=== PATIENT | male | born 1945 | race Caucasian/White ===

== ENCOUNTER 2019-02-26 16:19 | Inpatient (IN) | payer OTHER ==
[~2019-02-26] VITALS: Ht 177.8 cm; Wt 56.7 kg
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
[2019-02-26 16:21] VITALS: BP 105/61
[2019-02-26] MEDS ORDERED: DULCOLAX STOOL100 M1 PO (16:47)
[2019-02-26] MEDS ORDERED: MILK OF MA400 MG/5 M PO (16:47)
[2019-02-26] MEDS ORDERED: PHARBETOL325 MG PO (16:48)
[2019-02-26 16:59] LABS: URINE BILIRUBIN NEGATIVE (Negative); URINE BLOOD NEGATIVE (Negative); URINE CLARITY CLEAR; URINE COLOR YELLOW; URINE GLUCOSE-RANDOM* NEGATIVE (Negative); URINE KETONES NEGATIVE (Negative); URINE LEUKOCYTES-REFLEX NEGATIVE (Negative); URINE NITRITE-REFLEX NEGATIVE (Negative); URINE PROTEIN (DIPSTICK) NEGATIVE (Negative); URINE SPECIFIC GRAVITY 1.025 (1.005-1.035); URINE UROBILINOGEN 0.2 E.U./dl (0.2-1.0)
[2019-02-26 17:01] LABS: HEMATOCRIT 31.1 % (42.0-52.0); HEMOGLOBIN 10.5 gm/dL (14.0-18.0); MCH 33.7 pg (26.0-34.0); MCHC 33.8 g/dL (28.0-37.0); MCV 99.5 fL (80.0-100.0); RBC 3.13 mil/uL (4.50-6.00); RDW 14.9 % (10.5-14.5); WBC 5.3 thou/uL (4.0-11.0)
[2019-02-26 17:03] LABS: CALCIUM 8.2 mg/dL (8.5-10.1); CREATININE 0.7 mg/dL (0.7-1.3); POTASSIUM 3.7 mmol/L (3.5-5.1)
[2019-02-26 17:07] LABS: AMP/METHAMP Negative (Negative); BARBITURATES Negative (Negative); BENZODIAZEPINES Negative (Negative); COCAINE Negative (Negative); METHADONE Negative (Negative); OPIATES Negative (Negative); PCP Negative (Negative)
[2019-02-26 19:40] VITALS: BP 110/61
[2019-02-26 20:00] VITALS: BP 137/59
[2019-02-26 20:05] VITALS: BP 136/64
--- NOTE | 2019-02-26 23:37 | NUR ---
ADMIT NOTE. PT ADMITTED FROM ED. PT ARRIVED FROM [facility], HE WAS THERE FOR SKILLED CARE BUT DUE TO COMBATIVE AGITATION HE WAS SENT TO THE ED. PT HAS A DAUGHTER WHO IS HIS GUARDIAN. PT IS CONFUSED, ORIENTED TO NAME, NOT ABLE TO ANSWER ASSESSMENT QUESTION. HISTORY OBTAINED FROM REPORT AND NH RECORDS. PT WAS NOT ON ANY ROUTINE MEDICATIONS, NKDA, FULL CODE. MED HX HTN, HLD, DEMENTIA, FALLS. PT HAS BLUNTED OR ANGRY AFFECT, GOOD EYE CONTACT, RAPID STEADY GAIT AMBULATORY. INCONTINENT. SPEECH CLEAR WHEN YELLING AND CURSING, MUMBLES TO SELF. PT PICKING AT FLOOR AND AIR, PT CHECKING DOORS, FOLDING SHEETS ON BED, CARRYING SHEETS INTO DAY ROOMO AND FOLDING THEM. PT EMPTIED TRASH
--- NOTE | 2019-02-26 23:50 | NUR ---
SOCIAL WORK ADMINISTRATOR CAME TO VISIT [facility] PT, PT COMBATIVE AND NONVERBAL.
[2019-02-27 09:03] VITALS: BP 126/51
--- NOTE | 2019-02-27 16:30 | NUR ---
SW attempted to complete Psychosocial assessment with Pt. Pt unable to answer questions as his speech was incoherent. SW will follow up with family to complete assessment.
--- NOTE | 2019-02-27 17:17 | NUR ---
WANDERING INTO OTHER ROOMS AND PICKING UP GALAN AT ONE POINT HAD 5 GALAN IN HIS HAND-RESISITVE WITH LETTING STAFF HAVE THESE GALAN. COMBATIVE WITH ATTEMPTS TO CHANGE BRIEF-HITTING,KICKING AND SWEARING AT STAFF,REQUIRES ASSIST OF 2-3 TO COMPLETE PERINEAL CARE. CONVERSATION FRAGMENTED,INCOHERENT. INCONGRUENT AFFECT HE IS SMILING WHILE ATTEMPTING TO PINCH STAFFS ARM. GAIT IS STEADY WITHOUT ASSISITVE DEVICES-ABLE TO FEED SELF IF TRAY SET UP-POOR INTAKE AT LUNCH HE APPEARED UNABLE TO SIT STILL UP AND PACING IN HALLWAY. COMPLIENT WITH TAKING PO MEDS
[2019-02-27 19:25] VITALS: BP 127/94
--- NOTE | 2019-02-27 23:19 | NUR ---
Care assumed of patient at 1915: Patient alert and oriented to person only. Patient confused. Mumbling, disorganized speech observed. Patient hyperactive about the day room. Touching the bell, feeling the couch along the seams, trying to move furniture, trying to turn screws/bolts visible along the bell. Patient easily re-directed at the beginning of the shift. Patient ate 100% snack. Cooperative with nursing assessment. Nurse administered PRN Trazodone 25mg po to assist with sleep. Patient took medication crushed without difficulty. Patient became increasingly hyperactive, impulsive, exit seeking, banging on doors and windows, going in rooms of peers sleeping and refusing to leave, yelling/cursing toward staff. Agitation behaviors continued to increase so nurse administered Zyprexa 5mg IM. Patient was assisted to bed approximately 1 hour after injection administered due to him trying to lay down on the couch. Patient was able to sleep for approximately 1 hour and is now up. Patient was incontinent of bladder. Lilly care provided and linens changed. Patient became combative, hostile, verbally/physically aggressive by hitting while lilly care and brief was changed. Required staff assist x3 due to assaultive behaviors. Patient continues to be restless at this time. Unknown if patient is experiencing visual hallucinations or is just pilfering. Patient visualized crawling on the floor several times and feeling around on the floor with nothing visible to staff.
[2019-02-28 05:27] LABS: HEMATOCRIT 34.6 % (42.0-52.0); HEMOGLOBIN 11.3 gm/dL (14.0-18.0); MCH 32.8 pg (26.0-34.0); MCHC 32.6 g/dL (28.0-37.0); MCV 100.4 fL (80.0-100.0); RBC 3.45 mil/uL (4.50-6.00); RDW 14.5 % (10.5-14.5); WBC 4.5 thou/uL (4.0-11.0)
[2019-02-28 05:55] LABS: ANION GAP 8 mmol/L (7-16); BUN 15 mg/dL (7-18); CALCIUM 8.9 mg/dL (8.5-10.1); CHLORIDE 103 mmol/L (98-107); CHOLESTEROL 232 mg/dL (<200); CO2 28 mmol/L (21-32); CREATININE 0.7 mg/dL (0.7-1.3); GLUCOSE 84 mg/dL (74-106); HDL CHOLESTEROL 77 mg/dL (>40); LDL CHOLESTEROL 141 mg/dL (<100); MAGNESIUM 2.1 mg/dL (1.8-2.4); POTASSIUM 3.7 mmol/L (3.5-5.1); SODIUM 139 mmol/L (136-145); TRIGLYCERIDE 73 mg/dL (<150); VLDL 15 mg/dL (<40)
[2019-02-28 05:57] LABS: SERUM ASSESSMENT Clear
[2019-02-28 06:17] LABS: TSH 2.156 uIU/mL (0.358-3.740)
[2019-02-28 08:09] VITALS: BP 128/65
--- NOTE | 2019-02-28 15:15 | NUR ---
0700: Report rec from noc shift, care assumed. [id number]: Mobile by w/c, slef propels in DR and edouard, intrusive among other pts, bangs into chairs, touches all objects and others, difficult to re-direct, staff attempted to assist with a.m. meal, pt resistive to help.Present for 0900 therapy group but unable to participate.
--- NOTE | 2019-02-28 23:18 | NUR ---
PT SITTING IN W/C LAP BELT, CHAIR ALARM. PROPELLING SELF IN DAY ROOM AND HALLWAY, PICKING AT AIR, OBJECTS, PANTS FURNITURE FLOOR. TALKING TO SELF, SLOUCHED POSITION. TAKING OF SHIRT AND SOCKS. PT RESISTIVE HITTING GRABBING WITH ADL CARES. PT COMPLIANT WITH HS MEDS AND SNACK. PTS DAUGHTER CALLED FOR UPDATE AND INFORMED OF NO SLEEP FOR LAST TWO DAYS. PT IN HALLWAY PUSHING ON DOORS AND PULLING ON DOOR KNOBS, RAMMING W/C INTO TABLE AND CHAIRS AND CABINETS, PRN IM PROVIDED.
--- NOTE | 2019-03-01 05:59 | NUR ---
PT ABLE TO SLEEP TONIGHT, REMAINS PHYSICALLY COMBATIVE WITH ADL CARES, GRABBING, HITTING PINCHING. REMAINS SLOUCHED OVER NOT ABLE TO STAND UPRIGHT. PT IN W/C WITH LAP BELT AND ALARM, PICKING ON GROUND, AIR, FURNITURE. MUMBLING TO SELF.
--- NOTE | 2019-03-01 08:35 | EKG ---
[address] [place] [address] ELECTROCARDIOGRAM REPORT Name: ANI SCOTT [facility] [id number] Admission: 02/26/19 Attend Phys: Joseph Bautista DO Discharge: Date of : 47 Report #: [id number] THIS REPORT FOR: //name// [facility] Test Date: 2019-02-28 Test Time: 11:05:25 Pat Name: ANI SCOTT [facility] M Soft Sugar Supervisor: Fabienne ULLOA : 1945 Requested By: Joseph Bautista Order Number: [id number] MD: Danyel Chambers Measurements Intervals [place] Rate: 45 P: 18 TN: 190 QRS: -49 QRSD: 158 T: 107 QT: 521 QTc: 451 Interpretive Statements Sinus bradycardia Left bundle branch block No previous ECG available for comparison Electronically Signed On 03-01-2019 8:34:46 CDT by Danyel Chambers [email or web address] <ELECTRONICALLY SIGNED> By: Danyel Chambers MD 03/01/19 0834 1105 04 Danyel Chambers MD /JOSE
[2019-03-01 09:04] VITALS: BP 115/78
--- NOTE | 2019-03-01 09:44 | NUR ---
Assess due to borderline low BMI of 18.5. Admit to [facility] with aggressive, violent behaviors. Unable to speak with pt. Wt 127-135 over few days, will need to follow trends. Eating 50-100% of meals. Will add oral supplement once per day due to wt status. Lipids are elevated chol 232, and LDL 141. Would not restrict diet until consistently eating well. Low nutrition risk
--- NOTE | 2019-03-01 15:19 | NUR ---
PATIENT IS UP IN WHEEL CHAIR, PROPELLING SELF AROUND THE UNIT, LAP BELT IN PLACE. PATIENT IS RESTLESS, PICKING ON AIR, AND ON EMPTY FLOOR. PATIENT RESISTS REDIRECTAION, HE IS VERY CONFUSED, HAS NO ABILITY TO FOLLOW DIRECTIONS OR REDIRECTIONS. PATIENT TOOK MEDICATION CRUSHED IN ORANGE JUICE WITHOUT DIFFICULTY. PATIENT CONSUMED 75% BREAKFAST, DECLINE LUNCH. PATIENT IS NOT ABLE TO RESPOND APPROPRIATELY TO ASSESSMENT QUESTIONS DUE TO COGNITVE IMPAIRMENT. NO SIGN OF ACUTE DISTRESS NOTED AT THIS TIME, WILL MONITOR FOR SAFETY.
--- NOTE | 2019-03-01 15:42 | NUR ---
JOSE contacted pt's daughter Lolis and got a history from her about pt. JOSE completed an initial assessment and tx plan for pt. JOSE contacted [facility] and asked if the plan was for pt to return. They said it is if pt's behavior improves. She asked that JOSE fax notes ,and an updated med list. JOSE faxed this information to Aleyda at [facility]. JOSE team will continue to follow pt during his stay.
[2019-03-01 20:01] VITALS: BP 141/91
--- NOTE | 2019-03-01 23:49 | NUR ---
Care assumed of patient at 1915: Patient alert and oriented to person. Patient confused and forgetful. Patient seated in w/c in the day room at start of shift. Patient restless, propelling w/c about the day room. Patient leaning forward and becomes resistive and aggressive when assisted to sit upright. Patient removing non-skid socks and hitting staff with them. Patient pushing furniture around with his arms and w/c. Patient declined HS snack. Nurse attempted to feed patient but patient hit nurse away. Patient did eat 100% HS medication crushed. Patient was provided PRN Trazodone due to anxiety/restlessness and showing no desire to go to bed. Patient was assisted to bed later in the evening due to continued restlessness, agitation and anxiety. Patient touching along furniture and the shakir. Appears to be that patient is experiencing visual hallucinations. Patient speaking clear words in almost a word salad. Denies pain or discomfort. No s/s of AH, delusional or paranoia behaviors. Patient assisted to bed with staff assist x2. Patient verbally and physically aggressive during transfer and toileting hygiene. Patient incontinent of bladder. Open area observed to sacrum. CORBY Suarez, notified. Order obtained for wound culture and wound consult. Picture taken and is placed in medical record. Barrier cream applied until wound nurse is able to observe. Thick, yellow drainage observed from wound. Patient is currently sleeping on his right side to offload pressure off sacrum. Patient appears to be resting quietly at this time.
[2019-03-02 04:45] VITALS: BP 154/98
--- NOTE | 2019-03-02 05:14 | NUR ---
Rounds completed on patient at 0440 by this nurse. Patient was sleeping soundly on his right side. Linens dry. Appeared to be resting comfortably. Another staff responded to bed alarm when patient was visualized walking in the hallway with no clothing and no socks on feet. Staff witnessed patient fall but was not able to assist in fall. Patient incontinent of bladder on the floor. Patient assisted to w/c where he was able to be cleaned up and dressed. Patient resistive to cares and physically aggressive to staff. Full ROM to all extremities. Pupils equal and reactive. Staff denies patient hitting his head during fall. Patient moved closer to a room closer to the nurses station, wearing yellow shirt, door plate changed to red. Message left with patient's daughter Lolis. Dr. Bautista notified by phone. Patient is currently sitting in w/c in day room with staff. Chair alarm present in w/c. Patient denies pain or discomfort at this time. No skin alterations observed. supervisor chlorine liquefaction notified of non-injury fall.
[2019-03-02 05:45] VITALS: BP 122/71
[2019-03-02 09:30] VITALS: BP 118/81
[2019-03-02 11:18] VITALS: BP 118/81
--- NOTE | 2019-03-02 13:00 | NUR ---
0700: Assumed care this morning. Pt very sleepy. Breakfast offered and morning medicagtions given. Crushed to liquid thickener. Not able to participiate in the 0900 group therapy session. Patient turned and cleaned up. 1200: [facility] offered. Total feeding assist. good appetite. Patient cleaned up. Very physical aggresssive to staff during pericare. Incontinent for urine. 1300: Pt awake and irritated. pulling the table around. Close observation, distratction through communication. Mumbles some words sometimes. Will continue with plan of care.
--- NOTE | 2019-03-02 16:35 | NUR ---
SW received a call from [facility] of stating that after reviewing pt's updates, they believe he is still not ready to come back as they are unable to manage his needs. SW team will continue to follow pt during his stay.
[2019-03-02 21:27] VITALS: BP 125/60
[2019-03-02 23:00] VITALS: BP 125/60
--- NOTE | 2019-03-03 02:30 | NUR ---
PATIENT UP IN RECLINER IN DINING ROOM FOR CLOSE OBSERVATION. PATIENT IS IMPULSIVE AND RESTLESS AT TIMES. HE KEEPS HEARING HIS DAD CALL HIS NAME AND TRIES TO RESPOND TO HIM. CAN'T TELL WHAT HIS DAD IS WANTING. PATIENT FIDGETS WITH HIS CLOTHES AND SOCKS. PATIENT IS CALM FOR MOST PART TONIGHT BUT NOT SHOWING ANY SIGNS OF WANTING TO GO TO SLEEP. MONITORING HIM CLOSELY. WOUND ON SACRUM WAS CLEANSED AND CHANGED AT 1830 TONIGHT. INTACT AT THIS MOMENT. NO DRAINAGE THRU DRESSING. WILL CLEAN AND CHANGE PRN IF NEEDED.
[2019-03-03 07:35] VITALS: BP 111/62
--- NOTE | 2019-03-03 13:56 | HC ---
[facility] [place] [address] CONSULTATION Name: ANI SCOTT Room #: 528B-B ADM IN M.R.#: [id number] Admission: 02/26/19 Attend Phys: Joseph Bautista DO Discharge: Date of : 47 Report #: [id number] THIS REPORT FOR: //name// CC: Joseph Sorto Spencer DATE OF SERVICE: 03/02/2019 CHIEF COMPLAINT: Sacral pressure ulceration. HISTORY OF PRESENT ILLNESS: This is a 73-year-old male patient who is admitted to the Geropsych Unit here at [facility] with significant dementia and behavioral disturbance. He was brought to the Emergency Department from a skilled facility for aggressive behaviors and punching staff. He was noted to have a sacral pressure ulceration. I have been asked to see him in this regard. He has a depressed mood and will not answer any questions and is mainly sitting up somewhat slumped over. PAST MEDICAL HISTORY: Positive for dementia with behavior disturbance, hyperlipidemia, depression, agitation and restlessness and a history of multiple falls. SOCIAL HISTORY: Unknown. FAMILY HISTORY: Unknown. MEDICATIONS: Include milk of magnesia, acetaminophen and Dulcolax. ALLERGIES: No known drug allergies. REVIEW OF SYSTEMS: Not obtainable due to depressed mood and affect. PHYSICAL EXAMINATION: VITAL SIGNS: At present include temperature 97.6, pulse 60, respiratory rate 12, blood pressure 118/81. GENERAL: This is a chronically ill-appearing male patient who appears to be in no distress, but is not cooperative with examination. HEAD: Normocephalic. NECK: Supple. LUNGS: Diminished. HEART: Regular rhythm. ABDOMEN: Soft. SKIN: Sacral region demonstrates an ulceration that appears relatively superficial over the sacrococcygeal region. There is some granulation tissue, and a little bit of slough on the surface. This is a stage 3 ulcer. There are no exposed deep structures and it does not appear to be overtly infected. [facility] [address] [place] [address] CONSULTATION Name: ANI SCOTT Room #: 528B-B ADM IN ..#: [id number] Admission: 02/26/19 Attend Phys: Joseph Bautista, Discharge: Date of : 47 Report #: [id number] NEUROLOGIC: The patient's level of orientation cannot be assessed. He appears to move symmetrically. LABORATORY DATA: Sodium 139, potassium 3.7, CO2 of 28, BUN 15, creatinine 0.7, glucose of 84. White blood cell count 4.5, hemoglobin of 11.3. CLINICAL IMPRESSION: 1. Stage 3 sacral pressure ulceration. 2. Dementia with behavior disturbance. 3. Hyperlipidemia. 4. Depression. RECOMMENDATIONS: At this point in time, we will use quarter strength Dakin's moist gauze dressing with ABD or bordered foam over the sacral region to be changed daily and as needed. It will be difficult to get him to cooperate with turns and dressing changes, but it will be recommended that he have q.2 hour turning and repositioning to offload this area. He will need ongoing aggressive nutritional support to maximize wound healing. I do appreciate being asked to see him in consultation. <ELECTRONICALLY SIGNED> By: Sameer Rothman MD 03/03/19 1356 1216 [id number] Sameer Rtohman MD /nt
--- NOTE | 2019-03-03 18:34 | NUR ---
07: Report rec from noc shift, care assumed. [id number]: Mobile in w/c, staff assisted, staff feeds pt all meals, pt unable to cognitively coordinate food. Makes brief eye contact with staff, occasional will answer interview questions logically. Figity and restless most of time while sitting in recliner, w/c, combative with ADL's and wound care to coccyx.Takes meds crushed in pudding w/o difficulty. Incont of urine, wears brief, pericare given with every brief change. 1700: Dakins tx to coccyx completed.
[2019-03-03 20:26] VITALS: BP 108/65
--- NOTE | 2019-03-04 01:19 | NUR ---
Care assumed of patient at 1915: Patient alert and oriented to person. When asked further orientation questions, patient started to talk about numbers and math equations. Patient mumbling and chuckling at himself. Patient cooperative with nursing assessment. Patient seated in recliner in day room, sitting quietly for the first part of the shift. Patient ate 100% HS snack without issue. Took HS medication crushed without difficulty. Patient did disrobe and take his shirt off and needed re-direction. Patient restless and fidgeting with the table, his shirt/pants. Denies SI/HI/AH/VH. No s/s of delusional or paranoia behaviors observed. Patient did state that his buttock was hurting. Provided PRN Tylenol and re-positioned patient in recliner. Patient primarily calm and cooperative until he was assisted into bed. Patient did become verbally and physically aggressive toward staff during transfer and toileting needs. Required staff x2 for safety. Patient was able to fall asleep rather quickly once assisted into bed. Patient has been resting quietly since assisted to bed.
[2019-03-04 07:30] VITALS: BP 108/66
--- NOTE | 2019-03-04 13:42 | NUR ---
Date of Admission: 02/26/19 Date of Activity Therapy Assessment: 03/01/19 Activity Goal: Decrease wandering/intrusive behaviors Initial Goal: 1 Group or individual activity/day Weekly progress towards goal: Did not achieve goals Group participation level: Needs some assistance Behaviors observed: Patient does not actively engage in socialization or groups likely d/t cognition. When spoken to, patient does not hold a conversation. He has been provided sensory stimulation activities through music and aromatherapy. Patients wandering has decreased. Plan: No change towards goal
[2019-03-04 20:31] VITALS: BP 148/63
--- NOTE | 2019-03-04 21:42 | NUR ---
PT RESISTING ADL CARE DURING ROUNDS, CLEAR BUT MUMBLED SPEECH, SENTENCES NOT ORGANIZED. PT IN CHAIR WITH LAP BELT AND ALARM. GOOD EYE CONTACT, UPRIGHT POSTURE, COMPLIANT WITH MEDS AND HS SNACK.
[2019-03-05 00:05] VITALS: BP 149/88
--- NOTE | 2019-03-05 00:10 | NUR ---
PTS BED ALARM WENT OFF. PT STANDING AT BOTTOM OF NEIGHBORING BED, PT TOOK A STEP BACK AND FELL TO THE FLOOR, PT WAS NOT SEEN TO HIT HIS HEAD, HE LANDED ON L BOTTOM AND SIDE. PT WAS GETTING HIMSELF UP OFF FLOOR, STAFF FURTHER ASSISTED. NOT INJURIES OBSERVED, PT DENIED INJURY OR PAIN. VS TAKEN. CUSTOMER SUPPLY COORDINATOR, ANDRE NOTIFIED, DPOA DAUGHTER LEFT VOICEMAIL. PT HAD URINATED IN THE BED. PT HAD BEEN LAYED INTO BED APPROXIMATELY 20MINUTES PRIOR AND HAD INCONTINENCE CARE PRIOR TO RESTING IN BED.
[2019-03-05 01:05] VITALS: BP 150/81
--- NOTE | 2019-03-05 03:37 | NUR ---
PT HAS REMAINED AWAKE SITTING IN CLEM CHAIR IN DAY ROOM. PT CONTINUES TO TALK TO HIMSELF, STATED TO LOOK AT THE CHILDREN, STATED WE ARE OPEN. PT HAS BEEN PICKING AT HIS PANTS, HE HAS REMOVED HIS ALARM AND PRESSURE RELEAVING ITEMS FROM HIS CHAIR.
--- NOTE | 2019-03-05 07:30 | NUR ---
Assumed care of patient this am. Patient in mileu sitting in a recliner chair. Patient appears content. Patient speaks occasionally in word salad with occasional laughing. Patients affect soft. Patients assessment shows clear breath sounds and active bowel sounds. Heart tones s1 and s2 present. Patient takes medications crushed with pudding.
[2019-03-05 07:35] VITALS: BP 114/72
[2019-03-05 08:00] VITALS: BP 114/72
--- NOTE | 2019-03-05 10:00 | NUR ---
Rinsed patients wound with dakins solution, changed patients dressing.
--- NOTE | 2019-03-05 18:08 | NUR ---
Patient ate 100% of his dinner and drink.
--- NOTE | 2019-03-06 01:20 | NUR ---
PERFORMED DAVI CARE, CLEANED AND DRIED PATIENT TO PREVENT FURTHER SKIN BREAKDOWN. DRESSING ON COCCYX AREA INTACT.
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
[2019-03-06 08:35] VITALS: BP 149/78
[2019-03-06 09:48] VITALS: BP 149/78
--- NOTE | 2019-03-06 15:23 | NUR ---
THE PATIENT WAS TURNED IN A VERTICAL POSTION THIS MORNING. HE WAS QUIET AND CALM. COMPLIANT WITH MEDICATIONS AND DRESSING CHANGE. WOUND HAD NO LEAKAGE. DRESSING IS INTACT AND DRY. THE PATIENT IS INCONTINENT AND WAS WASHED UP AND CHANGED. THE PATIENT WAS TAKEN TO THE DAY ROOM IN A WC. HE REMAINED QUIET AND CALM. THE PATIENT GARBLE WORDS AND HE IS DIFFICULT TO UNDERSTAND. HE IS ALERT. THE PATIENT IS WC BOUND AND IS NOT FOCUS. HE IS RESTLESS.
[2019-03-06 19:52] VITALS: BP 101/65
--- NOTE | 2019-03-07 04:43 | NUR ---
pt was unable to sleep all night. pt restless and picking on his pant. pt took his meds alright crushed in vangely quan fine. PRN med was given but was ineffective. pt sat in wheelchair almost all night with occasional moments of hallucinations where he will talk out loud in random words.
[2019-03-07 09:51] VITALS: BP 97/61
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
[2019-03-07 11:51] VITALS: BP 97/61
--- NOTE | 2019-03-07 14:22 | NUR ---
JOSE received a call from Lore with [facility] of stating she would like to visit with pt this afternoon. JOSE contacted Lolis to schedule a family meeting. No answer. Debt msg. JOSE team will continue to follow pt during his stay.
--- NOTE | 2019-03-07 15:39 | NUR ---
JOSE received a call from Lore with [facility] of who said she will visit pt in the morning due to not having staff coverage today. SW team will continue to follow pt during his stay.
[2019-03-07 19:41] VITALS: BP 138/83
--- NOTE | 2019-03-07 21:55 | NUR ---
PT AWAKE IN DAY ROOM SITTING IN CLEM CHAIR, ALARM AND LAP BELT. PT PICKING AT HIS PANTS AND BELT AND TABLE. PT HAS HEAD DOWN, POOR EYE CONTACT. PT TALKING TO HIMSELF GARBLED SPEECH. PT PERIODICALLY CURSES CLEARLY. PT COMPLIANT WITH HS MEDS AND SNACK.
--- NOTE | 2019-03-07 23:01 | NUR ---
PT COMBATIVE HITTING AND PINCHING AT STAFF DURING ADL INCONTINENCE CARES. PT PROVIDED INSTRUCTION PRIOR TO ADL CARES, AGITATED BEHAVIORS REMAIN WITH CARES.
--- NOTE | 2019-03-08 03:00 | NUR ---
PT DID FALL ASLEEP APPROXIMATELY 0030 IN DAY ROOM IN RECLINER CHAIR.
--- NOTE | 2019-03-08 06:05 | NUR ---
pt is very excitable when approached or initially touched. pt remains phsyically resistive to adl cares, kicking grabbing hitting.
--- NOTE | 2019-03-08 07:00 | NUR ---
Assumed care of patient this am. Patient in wheelchair in [facility]. Patients affect flat. Patient denies pain. Patient has wound on sacral area that will be redressed and inspected this am. Patient takes medications crushed in pudding or applesauce. Patient adherent with medications and requires nurse to feed them to him. Assessment reveals clear breath sounds, active bowel sounds, s1 s2 present on auscultation.
[2019-03-08 07:30] VITALS: BP 138/80
[2019-03-08 09:37] VITALS: BP 138/80
--- NOTE | 2019-03-08 10:10 | NUR ---
Cleaned wound and applied dakins solution. Moderate serosanguinous drainage present. Dressed wound with half of an abd pad. New brief put on patient and patient returned to [facility].
--- NOTE | 2019-03-08 11:30 | NUR ---
Nutrition followup: Pt with variable intake. 03/06 refused/30%/100% at each meal. 03/07 75% breakfast, 50% lunch, 100% dinner. 100% intake of supplements documented and pt only receiving one ensure daily. Will increase to BID due to ? of weight loss. Weights on 02/27, 127# and 129# . Most recent weight 124#. Follow trends for accuracy. Unable to speak with pt due to current behavioral issues per nsg. REC continue regular diet despite hyperlipidemia due to variable intake. Will continue to monitor nutritional parameters.
--- NOTE | 2019-03-08 17:59 | NUR ---
JOSE attended a meeting via phone with pt's daughter Lolis and psych doctor. During that meeting Lolis revealed that she will be sending pt back to [facility] in [place]. She asked that SW team fax referral to [facility]. SW team will continue to follow pt during his stay.
[2019-03-08 23:34] VITALS: BP 146/102
--- NOTE | 2019-03-09 04:02 | NUR ---
ASSUMED CARE AT APPROXIMATELY 1915, ON 03/08/19. PATIENT HAS BEEN UP IN A DAY ROOM IN [facility]. HE APPEARS WITH A TENSE AFFECT, IS UNCOOPERATIVE WITH STAFF WHEN ATTEMPTING TO ASSIST WITH ADL'S. HE BECOMES COMBATIVE AT TIMES REQUIRING THREE STAFF TO ASSIST PATIENT. HE HAS PUNCHED AND USED VULGAR LANGUAGE TOWARDS STAFF. THIS NURSE WAS UNABLE TO ASSESS SI HI FROM PATIENT. HE DOES NOT APPEAR TO BE IN MEDICAL DISTRESS AT TIME OF ASSESSMENT, WOUND DRESSING IN PLACE AND INTACT WITH NO DRAINAGE VISIBLE. NURSING WILL MAINTAIN Q12 CHECKS, ASSIST WITH ADLS NEEDED.
[2019-03-09 11:05] VITALS: BP 113/74
--- NOTE | 2019-03-09 11:59 | NUR ---
0704 Report received from overnight shift, patient ate breakfast took medication without incidence. Patient is nonverbal calm, cooperative in day room. Patient somewhat combative when changing depends and during wound care. Patient has a lap cesar for safety and support.
[2019-03-09 13:16] VITALS: BP 113/74
--- NOTE | 2019-03-09 16:37 | NUR ---
This information was accidentally added to [facility] pt's chart JOSE faxed a referral to [facility] in [place]. JOSE contacted Verenice. No answer.Lft msg on her vm. JOSE followed up with [facility] in the afternoon. Again no answer from Verenice's line. JOSE contacted Lolis who said she spoke with [facility]; she said it was reported to her they received pt's referral. She said she will contact [facility] and ask them to call JOSE. JOSE team will continue to follow pt during his stay.
[2019-03-09 20:16] VITALS: BP 133/82
--- NOTE | 2019-03-10 02:50 | NUR ---
PATIENT ASSESSED AND IS ALERT X 1. SKIN WARM AND DRY. RESP EVEN AND UNLABORED. NO CODE. TAKES MEALS WELL. NEEDS ASSISTANCE IN TRAY PREPARATION AND FEEDING. ALONG WITH TOLIETING AND BATHING. TAKES ENSURE WITH MEALS. TAKES MEDS CRUSHED WITH PUDDING. ESPINOZA HS MEDS WELL. INCONT OF BOWEL AND BLADDER. HAS A WOUND ON COCCYX AREA WITH MIN AMOUNT OF DRAINAGE. IS NON-VERBAL. IS MAX ASSIST PATIENT. SITS IN RECLINER WITH LAP JESSICA FOR SAFETY. COOPERATIVE DURING BREIF CHANGE AND BATHROOM VISITS. NO SI/HI NOTED. ON ROOM AIR. NO PAIN NOTED. NO AGRESSION NOTED THIS SHIFT. REMAINED SLEEPING IN CHAIR WITH A CUSHION UNDER HIM FOR PADDING. PICKS AT BLANKETS AND HIS PJ'S BOTTOMS WHILE AWAKE. CONT PLAN OF CARE. NEEDS A LAX IN AM. LAST BM WAS 02/26.
--- NOTE | 2019-03-10 03:55 | NUR ---
RIGHT ELBOW VERY RED AND SWOLLEN. ELEVATED ON PILLOW.NO DRAINAGE NOTED. WILL MONITOR FOR CHANGES.
--- NOTE | 2019-03-10 04:10 | NUR ---
DRESSING CHANGED TO COCCYX AREA WITH WET TO DRY DAKINS SOLUTION AND GUAZE WITH ABD AND TAPED. DRAINAGE WAS REDDISH YELLOW, WAS WET FROM URINE. TAKEN TO BATHROOM Q 2 HOURS AND PRN. WAS A LITTLE MORE COMBATIVE BUT DID NOT HIT ANYONE STAFF. PLACED BACK IN RECLINER WITH CUSHION ON CHAIR AND RIGHT ELBOW ON PILLOW FOR COMFORT. CONT TO MONITOR WOUND DRESSING.
--- NOTE | 2019-03-10 07:00 | NUR ---
Assumed care of patient this am. Patient calm and cooperative with meal and medication. Patient takes medication crushed in ice cream or pudding. Patients affect is flat. Patient ambulates via wheel chair. Patient is not able to feed himself and was fed by rn. Patients assessment reveals clear breath sounds, active bowel sounds, and heart tones s1 and s2 present. Vital signs stable.
[2019-03-10 09:30] VITALS: BP 121/63
[2019-03-10] MEDS ORDERED: AMOXICILLIN875 MG PO (10:54)
[2019-03-10] MEDS ORDERED: FLOMAX0.4 MG PO (10:54)
[2019-03-10] MEDS ORDERED: TRAZODONE HCL50 MG PO (10:55)
[2019-03-10] MEDS ORDERED: ZYPREXA 5 MG TAB5 M1 PO (10:56)
[2019-03-10] MEDS ORDERED: DAKIN'S473 M2 IRRIG (10:56)
[2019-03-10] MEDS ORDERED: FINASTERIDE5 MG PO (11:00)
--- NOTE | 2019-03-10 11:29 | NUR ---
JOSE D/C note JOSE contacted Verenice with [facility] in [place] to assist with pt discharge. Verenice said they can transport pt at 1400. JOSE faxed pts discharge orders to [phone]. No other needs for JOSE team to address at this time. [facility] [address] [place] [address]
--- NOTE | 2019-03-10 15:30 | NUR ---
Patient discharged to [facility]. Patient transported to [place] via wheelchair by RN. Patients clothing returned to him prior to discharge. Patients discharge packet and prescriptions sent with patient. Patient unable to sign paperwork.
--- NOTE | 2019-03-13 11:25 | D ---
[facility] [place] [address] DISCHARGE SUMMARY Name: ANI SCOTT Room #: 528B-B DIS IN M.R.#: [id number] Admission: 02/26/19 Attend Phys: Joseph Bautista DO Discharge: 03/10/19 Date of : 47 Report #: [id number] THIS REPORT FOR: //name// CC: Joseph Bautista Macario Palmer DATE OF SERVICE: 03/10/2019 INPATIENT PSYCHIATRIC DISCHARGE SUMMARY ATTENDING PHYSICIAN: Joseph Bautista DO. FREIGHT HANDLER AT THE TIME OF DISCHARGE: Kg King MD DISCHARGE DIAGNOSES: Major neurocognitive disorder, likely due to Alzheimer disease with behavioral disturbance. Overall, continuing cognitive decline behaviors, this overall improved. The patient's comorbidities are as follows: He has a stage 3 sacral ulcer, it is healing, been treated by Dr. Rothman. The patient has olecranon bursitis, sinus bradycardia with left bundle branch block, history of falls, history of hyperlipidemia. Discharging her to [place], [place]. Recommend comfort feeding, but is on a regular diet, activity level as tolerated. The patient requires 24/7 care and assistance due to the nature of his dementia. Also, he had a positive wound culture for group C beta strep, currently on amoxicillin 875 mg p.o. b.i.d. We will leave him down to get 5-7 more days, tamsulosin 0.4 mg p.o. daily for BPH, trazodone 25 mg p.o. at bedtime, september repeat x 1 p.r.n. for sleep; olanzapine 7.5 mg p.o. b.i.d. for impulse control; sodium hypochlorite wet to dry daily, finasteride 5 mg p.o. daily. REASON FOR ADMISSION: Back on 02/26/2019, sent from [facility] in [place] for assualtive behaviorwhich refused to take him back, has been combative and he apparently he had 1 or 2 days stay in [facility]. HOSPITAL COURSE: The patient had very limited ability to participate in therapeutic milieu. He was treated but unfortunately intake remains suboptimal and patient essentialy healpless to himself and worsening. LABORATORY DATA: Laboratories from 02/28/2019 the patient cbc, cmp tsh gorssly normal PHYSICAL EXAMINATION: VITAL SIGNS: At time of discharge, temperature 36.6, pulse 87, respirations 14, BP 121/63, O2 sat 95%. MUSCULOSKELETAL: The patient is wheelchair bound. Physical exam as above. [address] [address] DISCHARGE SUMMARY Name: ANI SCOTT Room #: 528B-B [facility] IN M.R.#: [id number] Admission: 02/26/19 Attend Phys: Joseph Bautista DO Discharge: 03/10/19 Date of : 47 Report #: [id number] MENTAL STATUS EXAMINATION: This is a well-developed, old frail male, appearing his stated age. Attention impaired. Concentration impaired. Speech nonsensical at times. Some psychomotor agitation. No psychomotor retardation. Seated in chair generally sedate. No suicidal or homicidal behavior. Memory is not formally tested. Insight impaired and impaired. Fund of knowledge below average. PROGNOSIS: For this patient is guarded to poor. Hospice care to begin. <ELECTRONICALLY SIGNED> By: Joseph Bautista DO 03/13/19 1125 2309 0010 Joseph Bautista DO /nt
== END 2019-03-10 15:40 | DRG 56 ==
LOC: ER 16:19 → SBH 18:12 → EROBS 18:12 → SBH 18:12
PROVIDERS: Emergency Medicine; Internal Medicine; ADMIT Psychiatry & Neurology Psychiatry
DX: G30.9 Alzheimer's disease, unspecified (principal); L89.153 Pressure ulcer of sacral region, stage 3; F02.81 Dementia in other diseases classified elsewhere, unspecified severity, with behavioral disturbance; Z53.29 Procedure and treatment not carried out because of patient's decision for other reasons; E78.5 Hyperlipidemia, unspecified; F32.9 Major depressive disorder, single episode, unspecified; R29.6 Repeated falls; F63.9 Impulse disorder, unspecified; D53.9 Nutritional anemia, unspecified; I44.7 Left bundle-branch block, unspecified; B95.4 Other streptococcus as the cause of diseases classified elsewhere; Z66 Do not resuscitate; Z91.81 History of falling; Z79.899 Other long term (current) drug therapy; Z87.440 Personal history of urinary (tract) infections
CPT/HCPCS: 10880